=== PATIENT | male | born 1995 | race African-American/Black ===

== ENCOUNTER 2017-03-26 22:39 | Emergency (ER) | payer MEDICAID ==
[~2017-03-26] VITALS: Ht 177.8 cm; Wt 72.6 kg
[2017-03-27 02:25] VITALS: BP 132/72
[2017-03-27] MEDS ORDERED: HYDROcodone-ACET 10/325MG TAB PO ONE (02:45)
== END 2017-03-27 03:05 | disposition left against medical advice (07) ==
LOC: ER 22:39 → EDUNIT# 22:39 → ER 03-27 03:05
DX: S02.2XXA Fracture of nasal bones, initial encounter for closed fracture (principal); Z88.1 Allergy status to other antibiotic agents; Y09 Assault by unspecified means
CPT/HCPCS: 70450; 70486

== ENCOUNTER 2017-04-25 15:45 | Emergency (ER) | payer MEDICAID ==
[~2017-04-25] VITALS: Ht 172.7 cm; Wt 68.0 kg
[2017-04-25 16:04] VITALS: BP 151/91
== END 2017-04-25 17:14 | disposition home or self-care (01) ==
LOC: ER 15:52
DX: S00.03XA Contusion of scalp, initial encounter (principal); J45.909 Unspecified asthma, uncomplicated; F12.10 Cannabis abuse, uncomplicated; Z88.1 Allergy status to other antibiotic agents; Y08.89XA Assault by other specified means, initial encounter; Y93.89 Activity, other specified; Y99.8 Other external cause status; Y92.89 Other specified places as the place of occurrence of the external cause
CPT/HCPCS: 70450

== ENCOUNTER 2020-09-27 23:20 | Emergency (ER) | payer MEDICAID ==
[~2020-09-27] VITALS: Ht 157.5 cm; Wt 74.8 kg
[2020-09-28 01:33] VITALS: BP 106/77
[2020-09-28] MEDS ORDERED: KETOROLAC TROMETH 60MG/2ML VIAL IM ONE (02:45)
[2020-09-28 03:42] LABS: Alcohol, Urine < 3.0 mg/dL (0-10); Amphetamine Screen, Urine POSITIVE (NEGATIVE); Barbiturate Scree,Urine NEGATIVE (NEGATIVE); Benzodiazephine Screen, Urine NEGATIVE (NEGATIVE); Cannabinoid Screen, Urine POSITIVE (NEGATIVE); Cocaine Screen, Urine NEGATIVE (NEGATIVE); Opiate Scree,Urine NEGATIVE (NEGATIVE); Phencyclidine Screen, Urine NEGATIVE (NEGATIVE)
== END 2020-09-28 04:57 | disposition home or self-care (01) ==
LOC: ER 23:20
DX: M79.652 Pain in left thigh (principal); R20.2 Paresthesia of skin; F15.10 Other stimulant abuse, uncomplicated; F12.10 Cannabis abuse, uncomplicated; J45.909 Unspecified asthma, uncomplicated; Z88.1 Allergy status to other antibiotic agents
CPT/HCPCS: 73552; 80307; 99284; J1885